=== PATIENT | female | born 1990 | race Caucasian/White ===

== ENCOUNTER → 2021-12-18 | Day surgery (SDC) | payer BC ==
[~2021-12-18] MED LIST: ABILIFY5 MG PO; BUSPIRONE HCL5 MG PO; FENOFIBRATE160 MG PO; FREESTYLE LIBR1 EAC3 MC; GABAPENTIN600 MG PO; HYDROCHLOROTHIA25 MG PO; IBUPROFEN600 MG PO; LEVOTHYROXINE100 MC2 PO; LISINOPRIL10 MG PO; METFORMIN ER1000 MG PO; OMEPRAZOLE40 MG PO; PAROXETINE HCL20 MG PO; PHENTERMINE H37.5 MG PO; SPRINTEC 28 DA1 EACH PO; ZOLOFT50 MG PO
== END | disposition home or self-care (01) ==
LOC: OR 07:56
DX: K29.50 Unspecified chronic gastritis without bleeding (principal); K76.0 Fatty (change of) liver, not elsewhere classified; E66.9 Obesity, unspecified; I10 Essential (primary) hypertension; K21.9 Gastro-esophageal reflux disease without esophagitis; E11.9 Type 2 diabetes mellitus without complications; E03.9 Hypothyroidism, unspecified; Z79.84 Long term (current) use of oral hypoglycemic drugs; Z68.32 Body mass index [BMI] 32.0-32.9, adult; Z20.822 Contact with and (suspected) exposure to COVID-19
CPT/HCPCS: 36415; 82962; 84703; J2704; J7040